=== PATIENT | female | born 1970 | race Caucasian/White ===

== ENCOUNTER 2016-12-04 12:41 | Emergency (ER) | payer OTHER ==
[~2016-12-04] VITALS: Ht 165.1 cm; Wt 70.3 kg
[~2016-12-04 12:41] MED LIST: ALPRAZOLAM2 MG PO; AUGMENTIN 875-1 EACH PO; BUPROPION HYDR PO; BUTALB-ACETAMIN-CAFF PO; CYMBALTA60 M1 PO; DEXAMETHASONE OP; FLONASE 50 MCG16 GM; GABAPENTIN300 M1 PO; MONTELUKAST SOD10 MG PO; NORCO 325 MG-51 TAB PO; PATANOL 5 ML5 ML OP; TOBRAMYCIN OP
--- OUTSIDE RECORDS SUMMARY | 2016-12-04 12:47 | External Medical Summary Rpt ---
Author Author , Organization [employer] Address Unknown Phone Unavailable Care Team Providers Care Architectural Model Maker Name Role Phone Elizabeth Betancourt MD, Unavailable Unavailable Elizabeth Betancourt MD Purpose Continuity of Care Document - 06-03-2013 through 2016 Problems Code Diagnosis DOS Provider Status R92.8 OTHER 09-18-2016 ABNORMAL AND INCONCLUSIV E FINDINGS ON DIAGNOSTIC IMAGING OF BREAST Z12.31 ENCOUNTER 09-11-2016 FOR SCREENING MAMMOGRAM FOR MALIGNANT NEOPLASM OF BREAST 824.8 824.8 FX 06-03-2013 Theo ANKLE [facility] E849.6 E849.6 06-03-2013 Theo ACCIDENT IN [facility] BLDG E927.0 E927.0 06-03-2013 [facility] SUDDEN STRENUOUS MOVEMENT Allergies, Adverse Reactions, Alerts Type Allergy to substance Adverse Reaction to Substance Substance Reaction Severity NO KNOWN ALLERGIES Unknown Unknown Medications Na ND Rx Da Fi Fi Am Da Di Ph RX Ph St me C No te ll ll ou ys ag ar # ys at rm s nt no ma ic us Or Da si cy ia de te s n re d HY [address] 40 -0 OC 60 1- Lo OD 36 20 ng ON 56 14 er -A 2 CE Ac TA ti [place] ve NO PH EN 5- 32 5 ON 00 01 0 No DA 37 -0 NS 87 1- Lo ET 73 20 ng RO 29 14 er N 3 OD Ac T ti 4 ve MG TA BL ET Vital Signs 06-03-2013 17:46 Name Value Interpretat Reference Comment ion Range Body 98.0 [degF] Temperature BP 70 mm[Hg] Diastolic BP Systolic 119 mm[Hg] Heart 98 /min Rate/Pulse O2% 100 % Respiratory 20 /min Rate 06-03-2013 16:15 Name Value Interpretat Reference Comment ion Range BP 62 mm[Hg] Diastolic BP Systolic 113 mm[Hg] Heart 85 /min Rate/Pulse O2% 99 % Respiratory 20 /min Rate Procedures Procedure DOS Code Location Performer Comment APPLICATI 93.54 Elizabeth Mcgill MD SPLINT Encounters Encounter Start End Date Code Location Performer Type Date Emergency YOLANDA Betancourt MD (ER) 4 15:54 4 17:58 [facility]
--- OUTSIDE RECORDS SUMMARY | 2016-12-04 12:47 | External Medical Summary Rpt ---
Author Author , Organization [employer] Address Unknown Phone Unavailable Purpose Continuity of Care Document - through 2016
--- OUTSIDE RECORDS SUMMARY | 2016-12-04 12:47 | External Medical Summary Rpt ---
Author Author , Organization [employer] Address Unknown Phone Unavailable Care Team Providers Care Range Aid Name Role Phone Elizabeth Betancourt MD, Unavailable Unavailable Elizabeth Betancourt MD Purpose Continuity of Care Document - 06-03-2013 through 2016 Problems Code Diagnosis DOS Provider Status R92.8 OTHER 09-18-2016 ABNORMAL AND INCONCLUSIV E FINDINGS ON DIAGNOSTIC IMAGING OF BREAST Z12.31 ENCOUNTER 09-11-2016 FOR SCREENING MAMMOGRAM FOR MALIGNANT NEOPLASM OF BREAST 824.8 824.8 FX 06-03-2013 Theo ANKLE [facility] E849.6 E849.6 06-03-2013 Theo ACCIDENT IN [facility] BLDG E927.0 E927.0 06-03-2013 [facility] SUDDEN STRENUOUS MOVEMENT Allergies, Adverse Reactions, Alerts [...] er -A 2 CE Ac TA ti [place] ve NO PH EN 5- 32 5 [...] Betancourt MD (ER) 4 15:54 4 17:58 [facility]
--- OUTSIDE RECORDS SUMMARY | 2016-12-04 12:48 | External Medical Summary Rpt ---
Author Author MIKE Roberts, MIKE Roberts Organization [employer] Address Unknown Phone Unavailable
--- OUTSIDE RECORDS SUMMARY | 2016-12-04 12:48 | External Medical Summary Rpt ---
Demographics Preferred Language Sami Marital Status Unknown Temple Affiliation Unknown Race Unknown Ethnic Group Unknown Author Author , Organization [employer] Address Unknown Phone Unavailable Purpose Continuity of Care Document - 02-18-2004 through 2016 Immunization Name Date Route CVX Reacti Commen Provid Is Given on t er Refuse d MMR Histor H205 No 2006 ical Inform ation - Source Unspec ified Hep B, Histor H205 No adult 2004 ical Inform ation - Source Unspec ified Hep B, Histor H205 No adult 2003 ical Inform ation - Source Unspec ified Hep B, Histor H205 No adult 2003 ical Inform ation - Source Unspec ified
--- OUTSIDE RECORDS SUMMARY | 2016-12-04 12:48 | External Medical Summary Rpt ---
Demographics Preferred Language Azeri Marital Status Unknown Moravian Affiliation Unknown Race Unknown Ethnic Group Unknown [...]
--- NOTE | 2016-12-04 13:18 | Urgent Treatment Center Report ---
History of Present Issue Date/Time Seen by Provider 12/04/16 1309 Visit Reason Pt arrived:Walked Presenting Problem:PT WAS MOVING A POOL TABLE AND FELL INJURING HER LEFT KNEE AND LEFT SHOULDER Location if Accident: Onset of symptoms date/time:/ or onset unknown for:MEDICAL HX UNKNOWN Have you (or family members/close friends) recently traveled outside the [place]? N If Yes, where/when: Have you had exposure to infectious disease within the past month? TB? Other? Specify: Patient state that she has been doing a lot of moving around stuff at her house States that she is unsure how she hurt herself but the one thing that she remembers is that they was moving a pool table and she had previous surgery done on her left knee and she felt it give out and she fell landing on her left shoulder area. States that ever since she has been having pain in the back of her knee and in her shoulder ALLERGIES Coded Allergies: No Known Allergies (10/10/15) Home Medications Reported Medications Alprazolam 2 MG PO Q8HP PRN ANXIETY #90 BUPROPION HCL (Bupropion HCl Sr) 200 MG PO BID #60 History Medical History General CAD? No Angina: No [place]: No Hypertension? No Hyperlipidemia? No CHF? No DVT? No PE? No COPD? No Asthma? No Anemia? No GERD? No Gastric ulcers? No GI Bleed? No Hernia? No Thyroid Problems? No Hypothyroidism? No CVA? No Seizures? No Diabetes? No Renal Insuffiency? No UTI? No Stones? No BPH? No GB Disease: No Nephritic Syndrome? No Asplenia? No Hepatitis? No Sickle Cell Disease? No Arthritis? No Migraines? No Cataracts? No Glaucoma? No MRSA? No HIV? No TB? No Anxiety? No Depression? No Cancer? No More? 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 BREAST AUGMENTATION TORN MINISCUS BILATERAL Social History Smoking Hx Smoker: Never Smoker Tobacco: No Alcohol Alcohol: No Review of Systems All Other Systems Reviewed and Negative Comment Pain in left knee and left shoulder after falling and moving furniture around her house Physical Exam Vital Signs Vital Signs Date Time Temp Pulse Resp B/P Pulse O2 O2 Flow FiO2 Ox Delivery Rate 12/04 1259 98.4 68 16 123/59 98 General Appearance normal appearance, WD/WN, no apparent distress Respiratory Status Yes: trachea midline, chest symmetrical, non tender chest. No: respiratory distress. Cardiovascular normal exam, regular rate/rhythm, no peripheral edema, no gallop Neurologic alert, manager sql II-XII nml as tested, normal exam, no motor/sensory deficits, oriented x 3 Medical Decision Making LABS/Meds/Orders Pt receiving controlled substance in ED? No Results/Orders Current Medication Orders Sig/Radha Start time Last Medication Dose Route Stop Time Status Admin Ibuprofen 0 .STK-MED ONE 12/04 1423 DC PO Ibuprofen 800 MG ONCE ONE 12/04 1400 DC 12/04 PO 12/04 1401 1423 Ketorolac 0 .STK-MED ONE 12/04 1348 DC Tromethamine .ROUTE Ketorolac 60 MG ONCE ONE 12/04 1345 CAN Tromethamine IM 12/04 1346 Orders Procedure Date/time Status [id number] VIEWS 12/04 1312 Active KNEE-3 VIEWS-LT 12/04 1312 Active XRAY/CT/US XRAY/CT/US XRAY knee, shoulder XR interpretation by reviewed by me Xray Results no fracture seen Departure Departure Time of Disposition 1459 Disposition DC Home or Self Care(routine) Clinical Impression Primary Impression: Shoulder pain Qualifiers: Chronicity: acute Laterality: left Qualified Code: M25.512 - Pain in left shoulder Secondary Impressions: Knee pain Qualifiers: Chronicity: acute Laterality: left Qualified Code: M25.562 - Pain in left knee Condition STABLE Referrals Rakesh ZAVALA,James (PCP): 2 Days-Call Office [place] ZAVALA,Josh LOPEZ MD, [facility] [place] Patient Instructions How To Perform RICE (Rest, Ice, Compress, Elevate) Additional Instructions *RICE, Rest the extremity, Ice 15-20 minutes 3-4 times daily, Compress- wear the geovanny wrap as discussed as much as possible to help reduce swelling and pain, Elevate the extremity when at rest *Geovanny wrap is for support and help control swelling, use it except in the shower. Be sure that is not to tight but not to loose either *Elevate when resting *Ibuprofen 600-800mg every 6-8 hours as needed for pain an inflammation. If need something more can take Tylenol in between doses of Ibuprofen to help Immediately follow up for new or worsening of symptoms, or no noticeable improvement over the next 3-5 days Discharge Counseling Counseled pt/family regarding diagnosis, medications/RX, home care, follow up needs Prescriptions Current Visit Scripts Ibuprofen (Ibuprofen 800MG) 800 MG PO QIDP PRN pain #30 TAB at 0295
--- NOTE | 2016-12-04 13:18 | Urgent Treatment Center Report ---
History of Present Issue Date/Time Seen by Provider 12/04/16 1309 Visit Reason Pt arrived:Walked Presenting Problem:PT WAS MOVING A POOL TABLE AND FELL INJURING HER LEFT KNEE AND LEFT SHOULDER Location if Accident: Onset of symptoms date/time:/ or onset unknown for:MEDICAL HX UNKNOWN Have you (or family members/close friends) recently traveled outside the [place]? N If Yes, where/when: Have you had exposure to infectious disease within the past month? TB? Other? Specify: Patient state that she has been doing a lot of moving around stuff at her house States that she is unsure how she hurt herself but the one thing that she remembers is that they was moving a pool table and she had previous surgery done on her left knee and she felt it give out and she fell landing on her left shoulder area. States that ever since she has been having pain in the back of her knee and in her shoulder ALLERGIES Coded Allergies: No Known Allergies (10/10/15) Home Medications Reported Medications Alprazolam 2 MG PO Q8HP PRN ANXIETY #90 BUPROPION HCL (Bupropion HCl Sr) 200 MG PO BID #60 History Medical History General CAD? No Angina: No [place]: No Hypertension? No Hyperlipidemia? No CHF? No DVT? No PE? No COPD? No Asthma? No Anemia? No GERD? No Gastric ulcers? No GI Bleed? No Hernia? No Thyroid Problems? No Hypothyroidism? No CVA? No Seizures? No Diabetes? No Renal Insuffiency? No UTI? No Stones? No BPH? No GB Disease: No Nephritic Syndrome? No Asplenia? No Hepatitis? No Sickle Cell Disease? No Arthritis? No Migraines? No Cataracts? No Glaucoma? No MRSA? No HIV? No TB? No Anxiety? No Depression? No Cancer? No More? 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 BREAST AUGMENTATION TORN MINISCUS BILATERAL Social History Smoking Hx Smoker: Never Smoker Tobacco: No Alcohol Alcohol: No Review of Systems All Other Systems Reviewed and Negative Comment Pain in left knee and left shoulder after falling and moving furniture around her house Physical Exam Vital Signs Vital Signs Date Time Temp Pulse Resp B/P Pulse O2 O2 Flow FiO2 Ox Delivery Rate 12/04 1259 98.4 68 16 123/59 98 General Appearance normal appearance, WD/WN, no apparent distress Respiratory Status Yes: trachea midline, chest symmetrical, non tender chest. No: respiratory distress. 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 No Results/Orders Current Medication Orders Sig/Radha Start time Last Medication Dose Route Stop Time Status Admin Ibuprofen 0 .STK-MED ONE 12/04 1423 DC PO Ibuprofen 800 MG ONCE ONE 12/04 1400 DC 12/04 PO 12/04 1401 1423 Ketorolac 0 .STK-MED ONE 12/04 1348 DC Tromethamine .ROUTE Ketorolac 60 MG ONCE ONE 12/04 1345 CAN Tromethamine IM 12/04 1346 Orders Procedure Date/time Status [id number]-3 VIEWS 12/04 1312 Active KNEE-3 VIEWS-LT 12/04 1312 Active XRAY/CT/US XRAY/CT/US XRAY knee, shoulder XR interpretation by reviewed by me Xray Results no fracture seen Departure Departure Time of Disposition 1459 Disposition DC Home or Self Care(routine) Clinical Impression Primary Impression: Shoulder pain Qualifiers: Chronicity: acute Laterality: left Qualified Code: M25.512 - Pain in left shoulder Secondary Impressions: Knee pain Qualifiers: Chronicity: acute Laterality: left Qualified Code: M25.562 - Pain in left knee Condition STABLE Referrals Rakesh ZAVALA,James (PCP): 2 Days-Call Office [place] ZAVALA,Josh LOPEZ MD, [facility] [place] Patient Instructions How To Perform RICE (Rest, Ice, Compress, Elevate) Additional Instructions *RICE, Rest the extremity, Ice 15-20 minutes 3-4 times daily, Compress- wear the geovanny wrap as discussed as much as possible to help reduce swelling and pain, Elevate the extremity when at rest *Geovanny wrap is for support and help control swelling, use it except in the shower. Be sure that is not to tight but not to loose either *Elevate when resting *Ibuprofen 600-800mg every 6-8 hours as needed for pain an inflammation. If need something more can take Tylenol in between doses of Ibuprofen to help Immediately follow up for new or worsening of symptoms, or no noticeable improvement over the next 3-5 days Discharge Counseling Counseled pt/family regarding diagnosis, medications/RX, home care, follow up needs Prescriptions Current Visit Scripts Ibuprofen (Ibuprofen 800MG) 800 MG PO QIDP PRN pain #30 TAB at 9103
[2016-12-04] MEDS ORDERED: IBUPROFEN800 MG PO (15:09)
[2016-12-04 15:10] VITALS: BP 123/59
--- NOTE | 2016-12-05 07:24 | RADIOLOGY REPORT PS360 ---
KNEE-3 VIEWS-LT HISTORY: Pain following injury FALL ORDERING PHYSICIAN: MARK ANTHONY SMITH APRN PATIENT AGE: 46 years COMPARISON: None FINDINGS: No fracture or dislocation. No lytic or blastic change. Normal mineralization. There are minor osteoarthritic changes of the medial compartment and patellofemoral joint. IMPRESSION: Osteoarthritic change otherwise negative
--- NOTE | 2016-12-05 07:25 | RADIOLOGY REPORT PS360 ---
[id number]-3 VIEWS HISTORY: Pain following injury FALL ORDERING PHYSICIAN: MARK ANTHONY SMITH APRN PATIENT AGE: 46 years COMPARISON: 03/21/2015 FINDINGS: No fracture or dislocation. No lytic or blastic change. There is normal mineralization. The joint spaces are well-preserved. No significant degenerative/arthritic changes. No erosive changes evident. IMPRESSION: Negative, no acute finding
== END 2016-12-04 15:13 | disposition home or self-care (01) ==
LOC: UTC 12:41
DX: M25.512 Pain in left shoulder (principal); M25.562 Pain in left knee